=== PATIENT | male | born 1960 | race Caucasian/White ===

== ENCOUNTER 2022-04-16 07:30 | Outpatient (CLI) | payer BC ==
[2022-04-16 09:03] LABS: Mean Corpuscular HGB CONC 32.8 g/dL (32.0-36.0); Mean Corpuscular Hemoglobin 28.5 pg (27.0-33.0); Mean Corpuscular Volume 86.7 fl (81.2-95.1); Mean Platelet Volume 9.8 fl (7.4-10.4); Platelet Count 274 10x3/uL (150-450); RBC Distribution Width 12.9 % (11.5-14.5); Red Blood Cell (RBC) Count 5.27 10x6/uL (4.32-5.72); White Blood Cell (WBC) Count 5.7 10x3/uL (3.5-10.5)
[2022-04-16 09:30] LABS: Anion Gap 13 mmol/L (10-20); BUN (Urea Nitrogen) 16 mg/dL (8.4-25.7); Calc. Creatinine Clearance 0 mL/min (70-130); Calcium 9.2 mg/dL (7.8-10.44); Carbon Dioxide 25 mmol/L (22-29); Chloride 106 mmol/L (98-107); Estimated GFR 71; Glucose 102 mg/dL (70-105); Sodium 140 mmol/L (136-145)
== END 2022-04-16 07:31 | disposition home or self-care (01) ==
LOC: CSHLAB 07:30
PROVIDERS: ATTEND Surgery
DX: Z01.818 Encounter for other preprocedural examination (principal); Z20.822 Contact with and (suspected) exposure to COVID-19
CPT/HCPCS: 80048; 85027; 87811; 93005; 93010

== ENCOUNTER 2022-04-21 08:46 | Day surgery (SDC) | payer BC ==
[2022-04-17 15:06] VITALS: BMI 29.7
[2022-04-21] MEDS ORDERED: Rocuronium Bromide 10 MG/ML (10ML VIAL) ONE (10:53)
[2022-04-21] MEDS ORDERED: Lidocaine 1% PF 5 ML VIAL ONE ×2 (10:53→11:53)
[2022-04-21] MEDS ORDERED: Fentanyl 250 MCG/5 ML VIAL ONE (10:53)
[2022-04-21] MEDS ORDERED: Ondansetron PF 4 MG/2 ML Vial ONE (10:53)
[2022-04-21] MEDS ORDERED: Dexamethasone 4 mg/ml Vial ONE (10:53)
[2022-04-21] MEDS ORDERED: PROPOFOL 20 ML ONE (10:53)
[2022-04-21] MEDS ORDERED: EPINEPHrine 1 MG/ML AMP ONE (10:54)
[2022-04-21] MEDS ORDERED: Bupivacaine PF 0.5% 30 ML VIAL ONE (10:54)
[2022-04-21] MEDS ORDERED: Succinylcholine 200 MG/10 ml SYRINGE FS ONE (10:56)
[2022-04-21] MEDS ORDERED: CEFAZOLIN 2 GM VIAL ONE (11:03)
[2022-04-21] MEDS ORDERED: Phenylephrine 10 MG/ML VIAL ONE (11:08)
[2022-04-21] MEDS ORDERED: ePHEDrine Sulfate 50 MG/10 ML VIAL ONE (11:26)
[2022-04-21] MEDS ORDERED: Glycopyrrolate 0.2 MG/ML 5 ML SYRINGE ONE (11:42)
== END 2022-04-21 13:00 | disposition home or self-care (01) ==
LOC: CSHSDC 08:46
PROVIDERS: ATTEND Surgery
PROC: 0JB70ZZ Excision of Back Subcutaneous Tissue and Fascia, Open Approach (ICD-10-PCS; principal; 2022-04-21)
DX: L72.0 Epidermal cyst (principal); Z87.19 Personal history of other diseases of the digestive system; Z79.899 Other long term (current) drug therapy; Z20.822 Contact with and (suspected) exposure to COVID-19
CPT/HCPCS: 88304; J0171; J0690; J1100; J2370; J2405; J2704; J3010; S0020